=== PATIENT | male | born 1965 | race Caucasian/White ===

== ENCOUNTER → 2019-05-21 | Outpatient (CLI) | payer OTHER ==
--- NOTE | 2019-05-21 11:15 | RAD ---
LUMBAR SPINE 2-3V, HIP BILATERAL WITH PELVIS 05/21/2019 12:00 AM Indication: Pain for 2 years or longer COMPARISON: None available TECHNIQUE: 2 views of the lumbar spine are provided. AP view the pelvis and 2 views of each hip are provided. Findings: Sagittal alignment appears intact. Vertebral body heights are maintained. No acute fracture is identified. Disc heights are maintained. No significant endplate degenerative changes are identified. There is no significant facet arthropathy. No significant osseous neuroforaminal stenosis or spinal canal stenosis. Nonobstructive bowel gas pattern. Visualized portions of the sacrum appear intact. Bilateral total hip arthroplasty is identified with components in expected alignment. There is no lucency surrounding the hardware. Pelvic ring is intact. No acute fracture is identified. Impression: No acute fracture or malalignment of the lumbar spine. No acute fracture or dislocation involving bilateral total hip arthroplasties. No evidence for hardware failure. Electronically signed by: Olesya Kelly MD (05/21/2019 11:12 AM) [id number]
== END | disposition home or self-care (01) ==
LOC: RAD 09:15
PROVIDERS: ATTEND Surgery
DX: M25.552 Pain in left hip (principal); M25.551 Pain in right hip; M54.5 Low back pain; Z96.643 Presence of artificial hip joint, bilateral
CPT/HCPCS: 72100; 73521